=== PATIENT | male | born 1985 | race Caucasian/White ===

== ENCOUNTER 2017-05-21 10:03 | Emergency (ER) | payer OTHER ==
[2017-05-21 10:10] VITALS: BP 107/69
--- NOTE | 2017-05-21 11:51 | Emergency Department Report ---
Entered by ANDI KATZ, acting as scribe for CUONG SANTANA NP. ED Dizziness HPI - General Chief Complaint: Dizziness Stated Complaint: WEAK Time Seen by Provider: 05/21/17 11:05 Source: patient, EMS Mode of arrival: Ambulatory Limitations: No Limitations - History of Present Illness Initial Comments: 31 y/o male presents to the ED c/o acute dizziness that began this morning around 8:30 while at work. Associated symptoms include weakness, fever, chills, cough and runny nose but she denies wheezing, SOB, ear pain, blurry vision, nausea and vomiting. 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 Denies using tobacco products and alcohol. No alleviating or aggravating factors. NKDA. SARMIENTO Complaint: dizziness -: This morning Timing: sudden onset Description: lightheadedness History of Same: No History of Trauma: No Severity: mild Improves With: nothing Worsens With: nothing Associated Symptoms: cough, fever/chills, weakness, other (runny nose, no wheezing, no ear pain, no SOB, no blurry vision, no nausea, no vomiting ) - Related Data Previous Rx's Medication Instructions Recorded Last Taken Type Fluticasone [Flonase] 1 spray NS QDAY #1 bottle 05/21/17 Unknown Rx Loratadine 10 mg PO DAILY #30 tablet 05/21/17 Unknown Rx Allergies Allergy/AdvReac Type Severity Reaction Status Date / Time No Known Allergies Allergy Unverified 05/21/17 10:06 ED Review of Systems Comment: All other systems reviewed and negative Constitutional: chills, fever, weakness Eyes: denies: other (blurry vision) ENT: denies: ear pain Respiratory: cough, other (runny nose). denies: shortness of breath, wheezing Gastrointestinal: denies: nausea, vomiting Neurological: other (dizziness) ED Past Medical Hx - Past Medical History Previous Medical History?: No - Surgical History Past Surgical History?: No - Social History Smoking Status: Never Smoker Substance Use Type: None - Medications Home Medications: Home Medications Medication Instructions Recorded Confirmed Last Taken Type Fluticasone [Flonase] 1 spray NS QDAY #1 bottle 05/21/17 Unknown Rx Loratadine 10 mg PO DAILY #30 tablet 06/30/17 Unknown Rx ED Physical Exam - General Limitations: No Limitations General appearance: alert, in no apparent distress - Head Head exam: Present: atraumatic, normocephalic, normal inspection - Eye Eye exam: Present: normal appearance, PERRL, EOMI Pupils: Present: normal accommodation - ENT ENT exam: Present: normal orophraynx, mucous membranes moist, TM's normal bilaterally, normal external ear exam, other (frontal and maxillary sinus pain, erythema, clear nasal drainage) - Expanded ENT Exam Expanded TM/Canal exam: Erythema: Right TM, Canal Tenderness: Right TM, Left TM Mouth exam: Present: normal external inspection Teeth exam: Present: normal inspection Throat exam: Positive: tonsillar erythema. Negative: tonsillomegaly, tonsillar exudate, R peritonsillar mass, L peritonsillar mass - Neck Neck exam: Present: normal inspection, full ROM. Absent: tenderness - Respiratory Respiratory exam: Present: normal lung sounds bilaterally. Absent: wheezes, rales, rhonchi, chest wall tenderness - Cardiovascular Cardiovascular Exam: Present: regular rate, normal rhythm, normal heart sounds. Absent: systolic murmur, diastolic murmur, rubs, gallop - GI/Abdominal GI/Abdominal exam: Present: soft, normal bowel sounds. Absent: tenderness, guarding, rebound - Extremities Exam Extremities exam: Present: normal inspection, full ROM, normal capillary refill. Absent: tenderness, pedal edema, joint swelling, calf tenderness - Back Exam Back exam: Present: normal inspection, full ROM. Absent: tenderness, CVA tenderness (R), CVA tenderness (L), rash noted - Neurological Exam Neurological exam: Present: alert, oriented X3 - Psychiatric Psychiatric exam: Present: normal affect, normal mood - Skin Skin exam: Present: warm, dry, intact, normal color. 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 ED Disposition Clinical Impression: Dizziness Allergic rhinitis Qualifiers: Chronicity: acute Allergic rhinitis trigger: other Allergic rhinitis seasonality: unspecified seasonality Qualified Code(s): J30.89 - Other allergic rhinitis Disposition: DC-01 TO HOME OR SELFCARE Is pt being admited?: No Does the pt Need Aspirin: No Condition: Stable Instructions: Dizziness (ED) Prescriptions: Fluticasone [Flonase] 1 spray NS QDAY #1 bottle Loratadine 10 mg PO DAILY #30 tablet Referrals: PRIMARY CARE, [Primary Care Provider] - 3-5 Days Forms: Work/School Release Form(ED) Time of Disposition: 11:49 This documentation as recorded by the GIANNA jorgensen ELIZABETH,accurately reflects the service I personally performed and the decisions made by me, CUONG SANTANA, ADVERTISING PHOTOGRAPHER.
== END 2017-05-21 11:55 | disposition home or self-care (01) ==
LOC: ED 10:03
DX: J30.89 Other allergic rhinitis (principal); R42 Dizziness and giddiness
CPT/HCPCS: 93005; 93010